=== PATIENT | female | born 1950 | race Caucasian/White ===

== ENCOUNTER 2016-04-16 00:08 | Emergency (ER) | payer BC, OTHER ==
[~2016-04-16] VITALS: Ht 152.4 cm; Wt 89.4 kg
[~2016-04-16 00:08] MED LIST: ADVAIR 250/501 DISK IH; ATORVASTATIN CA80 MG PO; LEVAQUIN750 MG PO; LISINOPRIL2.5 MG PO; LORAZEPAM0.5 MG PO; VENTOLIN HFA18 GM IH
[2016-04-16 01:22] LABS: MCH 28.5 PG (29.0-34.0); MCHC 33.2 G/DL (30.0-36.0); MEAN PLAT.VOLUME 9.4 uM^3 (9.5-12.4); PLATELET COUNT 251 K/uL (156-360); RBC DIS.WIDTH-CV 13.4 % (11.8-14.6); RBC DIS.WIDTH-SD 41.9 % (39-53); RED BLOOD COUNT 4.42 M/uL (3.80-5.20); WHITE BLOOD COUNT 7.6 K/uL (4.1-10.2)
[2016-04-16 01:31] LABS: CHLORIDE 106 mEq/L (99-109); POTASSIUM 4.3 mEq/L (3.7-5.4); SODIUM 141 mEq/L (136-147)
[2016-04-16 01:33] LABS: D-DIMER ELISA 0.24 mg/L FEU (< 0.57); GLUCOSE 122 mg/dL (70-99)
[2016-04-16 01:34] LABS: ANION GAP 9 MEQ/L (2-14)
[2016-04-16 01:36] LABS: GFR ESTIMATE (CALCULATED) > 59 mL/min/
[2016-04-16 01:37] LABS: UREA NITROGEN (BUN) 29 mg/dL (9-23)
[2016-04-16 01:39] LABS: CREATINE KINASE 209 IU/L (1-294)
[2016-04-16 02:03] VITALS: BP 148/82
[2016-04-16] MEDS ORDERED: PERCOCET 5/31 TABLET PO (02:04)
== END 2016-04-16 02:07 | disposition home or self-care (01) ==
LOC: EME 00:08
PROVIDERS: Physician Assistant
DX: M25.512 Pain in left shoulder (principal); M79.622 Pain in left upper arm; M79.89 Other specified soft tissue disorders; Z85.3 Personal history of malignant neoplasm of breast; E11.9 Type 2 diabetes mellitus without complications; E78.5 Hyperlipidemia, unspecified
CPT/HCPCS: 73030; 80048; 82550; 85027; 85379; 99281; 99284